=== PATIENT | female | born 1990 | race Caucasian/White ===

== ENCOUNTER 2016-09-16 23:30 | Emergency (ER) | payer OTHER ==
[~2016-09-16] VITALS: Wt 56.8 kg
[2016-09-17 00:49] LABS: URINE BLOOD (Dip) POC 2+ (NEGATIVE)
[2016-09-17] MEDS ORDERED: CEPH-443 PO (01:18)
[2016-09-17] MEDS ORDERED: NITR-58 PO (01:19)
[2016-09-17] MEDS ORDERED: IBUP-1542 PO (01:20)
[2016-09-17] MEDS ORDERED: ACET500C5 PO (01:20)
--- NOTE | 2016-09-17 01:24 | ERD ---
ER Documentation Chief Complaint Date/Time DATE: 09/17/16 TIME: 01:21 Chief Complaint dysuria and blood in urine HPI This a 26-year-old female who presents to the emergency department today complaining of burning and pain with urination that started yesterday. Patient states that she had intercourse a couple of days ago. States that she noticed that there was some blood in her urine today. Denies any fevers or chills, back pain, vaginal bleeding or vaginal discharge ROS All systems reviewed and are negative except as per history of present illness. Medications Home Meds Active Scripts Acetaminophen* (Tylophen*) 500 Mg Capsule, 1 CAP PO Q6H Y for PAIN AND OR ELEVATED TEMP, #30 CAP Prov:DAPHNE BRIONSE PA-C 09/17/16 Ibuprofen* (Motrin*) 600 Mg Tab, 600 MG PO Q6, #30 TAB Prov:DAPHNE BRIONES PA-C 09/17/16 Nitrofurantoin Monohyd Macrocr* (Macrobid*) 100 Mg Capsr, 100 MG PO BID for 7 Days, CAP Prov:DAPNHE BRIONES PA-C 09/17/16 Discontinued Scripts Cephalexin* (Keflex*) 500 Mg Capsule, 500 MG PO QID for 7 Days, CAP Prov:DAPHNE BRIONES PA-C 09/17/16 Physical Exam Vitals Vital Signs Date Time Temp Pulse Resp B/P Pulse Ox O2 Delivery O2 Flow Rate FiO2 09/16/16 23:32 98.0 97 20 107/55 98 Physical Exam Const: Pleasant, no acute distress Head: Atraumatic Eyes: Normal Conjunctiva ENT: Normal External Ears, Nose and Mouth. Neck: Full range of motion..~ No meningismus. Resp: Clear to auscultation bilaterally Cardio: Regular rate and rhythm, no murmurs Abd: Soft, non tender, non distended. Normal bowel sounds Skin: No petechiae or rashes Back: No midline or flank tenderness. No CVA tenderness. Neur: Awake and alert Psych: Normal Mood and Affect Results 24 hrs Laboratory Tests Test 09/17/16 00:47 Bedside Urine Blood 2+ Bedside Urine Glucose (UA) Negative Bedside Urine Ketones (LAB) Negative Bedside Urine Leukocyte Esterase (L 2+ Bedside Urine Nitrite (LAB) Negative Bedside Urine Protein (LAB) 2+ Bedside Urine pH (LAB) 7.0 Procedures/MDM This a 26-year-old female who presents to the emergency department today complaining of burning and pain with urination that started yesterday and hematuria that started today. . I did obtain UA UA shows 2+ leukocyte esterase and 2+ blood. Negative nitrates. Patient is afebrile and otherwise well-appearing. She has no CVA tenderness. Low suspicion for pyelonephritis or nephrolithiasis. Patient will be given a prescription for Macrobid as she is allergic to penicillin derivatives. Patient was also given a prescription for Tylenol Motrin for home for pain. At this time the patient is stable for discharge and outpatient management. Patient should follow up with their PCP in the next 1-2 days. They may return to the emergency department sooner for any persistent or worsening of symptoms. Patient understood and agreed with the plan. Departure Diagnosis: Primary Impression: UTI (urinary tract infection) Urinary tract infection type: site unspecified Hematuria presence: with hematuria Qualified Code: N39.0 - Urinary tract infection with hematuria, site unspecified Condition: Fair Patient Instructions: Understanding Urinary Tract Infections (UTIs) Referrals: [facility] YOU HAVE RECEIVED A MEDICAL SCREENING EXAM AND THE RESULTS INDICATE THAT YOU DO NOT HAVE A CONDITION THAT REQUIRES URGENT TREATMENT IN THE EMERGENCY DEPARTMENT. FURTHER EVALUATION AND TREATMENT OF YOUR CONDITION CAN WAIT UNTIL YOU ARE SEEN IN YOUR DOCTORS OFFICE WITHIN THE NEXT 1-2 DAYS. IT IS YOUR RESPONSIBILITY TO MAKE AN APPOINTMENT FOR FOLOW-UP CARE. IF YOU HAVE A PRIMARY DOCTOR --you should call your primary doctor and schedule an appointment IF YOU DO NOT HAVE A PRIMARY DOCTOR YOU CAN CALL OUR PHYSICIAN REFERRAL HOTLINE AT IF YOU CAN NOT AFFORD TO SEE A PHYSICIAN YOU CAN CHOSE FROM THE FOLLOWING [facility] [id number] [facility] [address] [facility] [address] [facility] [facility] [address] [facility] [facility] [address] [facility]. [facility]. [address] Additional Instructions: Call your primary care doctor TOMORROW for an appointment during the next 1-2 days.See the doctor sooner or return here if your condition worsens before your appointment time. Take antibiotics as prescribed for urinary tract infection Take Tylenol or Motrin for pain DAPHNE BRIONES PA-C Sep 17, 2016 01:24
[2016-09-17 01:45] VITALS: BP 130/62; PULSE 80; RESP 20; TEMP 98
== END 2016-09-17 01:45 | disposition home or self-care (01) ==
LOC: FTE 23:30
DX: N39.0 Urinary tract infection, site not specified (principal)
CPT/HCPCS: 81003; Z7502; 99283